=== PATIENT | male | born 1960 | race Caucasian/White ===

== ENCOUNTER 2017-06-20 20:23 | Emergency (ER) | payer OTHER ==
[2017-06-20] MEDS ORDERED: Ketorolac 60 MG/2 ML SDV IM ONE (21:04)
[2017-06-20] MEDS ORDERED: Colchicine 0.6 MG Tab PO ONE ×2 (21:07→21:38)
--- NOTE | 2017-06-20 21:45 | EDM.PDOC ---
ED HPI GENERAL MEDICAL PROBLEM - General Chief Complaint: Upper Extremity Injury/Pain Stated Complaint: WRIST PAIN Time Seen by Provider: 06/20/17 20:55 Source of Information: Reports: Patient History Limitations: Reports: No Limitations - History of Present Illness INITIAL COMMENTS - FREE TEXT/NARRATIVE: 56 year old male presents for evaluation and treatment of right wrist pain. Patient reports he has a history of gout and this feels similar. He saw the [facility] last week for a gout flare. Prescribed colchine for the acute flare and started on allopurinol. Reports the flare never went away and now over the last 2 days has been significantly worsen. Reports swelling and a throbbing sensation in the right wrist. No current increased warmth or erythema. He reports it was more erythematous last week. No numbness or tingling. No fevers. Reports no ROM due to the pain. Reports colchine has worked well in the past. State he has an appointment with rheumatology in a month through the [facility]. Patient reports he has had the diagnosis confirmed with joint aspiration in the past. Reports previous injury and surgery to the right wrist. Duration: Day(s): (2) Location: Reports: Upper Extremity, Right (wrist) Quality: Reports: Throbbing Severity: Severe Improves with: Reports: Rest, Other (elevation) Treatments MILITARY NURSE: Reports: Aspirin Right Wrist Pain Score (Numeric/FACES): 10 - Related Data Allergies Allergy/AdvReac Type Severity Reaction Status Date / Time iodine Allergy Cardiac Verified 06/20/17 20:33 Arrest Home Meds: Home Meds Allopurinol [Zyloprim] 100 mg PO DAILY 06/20/17 [History] Colchicine 0.6 mg PO ASDIRECTED #21 tablet 06/20/17 [Rx] Prednisone [IJD: predniSONE] 40 mg PO WITHBREAKFAST #10 tab 06/20/17 [Rx] Past Medical History - Past Health History Medical/Surgical History: Denies Medical/Surgical History Musculoskeletal History: Reports: Gout Social & Family History - Tobacco Use Smoking Status *Q: Unknown Ever Smoked Review of Systems - Review of Systems Review Of Systems: See Below Constitutional: Denies: Fever Musculoskeletal: Reports: Joint Pain (right wrist), Joint Swelling (right wrist) Skin: Denies: Erythema Neurological: Denies: Numbness, Tingling ED EXAM, GENERAL - Physical Exam Exam: See Below Exam Limited By: No Limitations General Appearance: Alert, WD/WN, Mild Distress, Obese Respiratory/Chest: No Respiratory Distress Cardiovascular: Normal Peripheral Pulses, Regular Rate, Rhythm Peripheral Pulses: 3+: Radial (R) Extremities: Normal Capillary Refill, Joint Swelling (right wrist), Limited Range of Motion (testing deferred due to pain), Other (significant tenderness to the right wrist with light touch). No: Increased Warmth Neurological: Alert, Oriented, Normal Cognition, No Motor/Sensory Deficits ( normal sensation to the right hand and wrist; ROM testing deferred due to pain) Psychiatric: Normal Affect, Normal Mood Skin Exam: Warm, Dry, Normal Color Course - Vital Signs Last Recorded V/S: Last Vital Signs Temp 36.9 C 06/20/17 20:30 Pulse 105 H 06/20/17 20:30 Resp 18 06/20/17 20:30 BP Pulse Ox 100 06/20/17 20:30 - Orders/Labs/Meds Meds: Medications Discontinued Medications Generic Name Dose Route Start Last Admin Trade Name Freq PRN Reason Stop Dose Admin Colchicine 1.2 mg 06/20/17 21:07 06/20/17 21:12 Colcrys PO 06/20/17 21:08 1.2 mg ONETIME ONE Administration Colchicine 0.6 mg 06/20/17 21:38 06/20/17 21:54 Colcrys PO 06/20/17 21:39 0.6 mg ONETIME ONE Administration Ketorolac Tromethamine 60 mg 06/20/17 21:04 06/20/17 21:08 Toradol IM 06/20/17 21:05 60 mg ONETIME ONE Administration - Radiology Interpretation Free Text/Narrative:: xray of the right wrist shows no acute fractures or dislocations. - Re-Assessments/Exams Free Text/Narrative Re-Assessment/Exam: 06/20/17 21:35 I reviewed the xray results with the patient. Xray obtained due to the severity of the pain and at one point the patient described the pain as "bone on bone". Will treat for acute gout flare with colchine tonight and prednisone x 5 days starting tomorrow. placed in a sling to help with decreased ROM and elevation as elevating the wrist improves his pain. Discharge instructions as documented. Departure - Departure Time of Disposition: 21:38 Disposition: Home, Self-Care 01 Condition: Fair Clinical Impression: Gout - Discharge Information Prescriptions: Colchicine 0.6 mg PO ASDIRECTED #21 tablet Prednisone [IJD: predniSONE] 40 mg PO WITHBREAKFAST #10 tab Instructions: Gout, [id number] Referrals: PCP,Unknown [Ordering Only Provider] - Marleen Walker DO [Primary Care Provider] - Forms: ED Department Discharge Additional Instructions: take OTC NSAIDs such as ibuprofen for pain. For severe pain not relieved by ibuprofen may take percocet 1-2 tabs PO every 4-[address] machinery within 12 hours of taking percocoet. Percoceet can be habit forming, I recommend you take as few of these as needed to control your pain. Prednisone 40mg PO daily x 5 days. Start tomorrow. Colchine 1.2mg at onset of attack, take 0.6mg 1 hour later. Sling as needed for discomfort. Follow-up with rheumatology as planned. Please return to the ER if your symptoms change or worsen. Rx percocet 5-325mg #10 1-2 tabs PO every 4-6 given from [facility].
--- NOTE | 2017-06-21 06:56 | CR ---
Right wrist: Four views of the right wrist were obtained. Comparison: No prior study. Benign appearing cyst is seen within the distal ulna. Joint spaces are preserved. No acute fracture or other bony abnormality is identified. Vascular calcification is noted. Impression: 1. Incidental findings. Diagnostic code #2
== END 2017-06-20 21:50 | disposition home or self-care (01) ==
LOC: JD.ED 20:23
DX: M10.9 Gout, unspecified (principal); Z79.899 Other long term (current) drug therapy; Z88.8 Allergy status to other drugs, medicaments and biological substances
CPT/HCPCS: 73110; 96372; 99284; A9270; J1885; 99283